=== PATIENT | female | born 1990 | race Caucasian/White ===

== ENCOUNTER 2018-06-14 11:40 | Emergency (ER) | payer SELFPAY ==
[~2018-06-14 11:40] MED LIST: ISOVUE-370 76%-LOCM 1 ML ONE
[2018-06-14 12:14] LABS: Bilirubin Negative (Negative); Blood, Urine Negative (Negative); Clarity CLEAR (Clear); Glucose, Urine (Dipstick) Negative (Negative); Leukocyte Negative (Negative); Nitrite Negative (Negative); Protein, Urine (Dipstick) Negative (Neg-Trace); Specific Gravity, Urine 1.004 (1.002-1.036); pH, Urine 6.5 (5.0-9.0)
[2018-06-14 12:24] LABS: Hemoglobin 11.9 g/dL (12.0-16.0); Mean Corpuscular Hemoglobin 27.9 pg (27.0-31.0); Mean Corpuscular Volume 87.2 fL (78.0-98.0); Mean Platelet Volume 9.1 fL (7.4-10.4); Platelet Count 185 thou/uL (130-400); RBC Distribution Width 14.9 % (11.5-14.5); Red Blood Cell (RBC) Count 4.26 mill/uL (4.20-5.40); White Blood Cell (WBC) Count 14.9 thou/uL (4.8-10.8)
[2018-06-14 12:47] LABS: ALT (SGPT) 380 U/L (8-55); AST (SGOT) 213 U/L (5-34); Albumin 4.1 g/dL (3.5-5.0); Alkaline Phosphatase 377 U/L (40-150); Bilirubin, Direct 1.4 mg/dL (0.1-0.3); Protein, Total 7.2 g/dL (6.0-8.3)
[2018-06-14 12:48] LABS: ALT (SGPT) 381 U/L (8-55); AST (SGOT) 215 U/L (5-34); Alkaline Phosphatase 369 U/L (40-150); Anion Gap 11 mmol/L (10-20); Anisocytosis SLIGHT = 6-15 cells (100X) (0-5/hpf); BUN (Urea Nitrogen) 10 mg/dL (7.0-18.7); Band 1 % (5-11); Bilirubin, Total 2.1 mg/dL (0.2-1.2); Calc. Creatinine Clearance 0 mL/min (70-130); Calcium 9.6 mg/dL (7.8-10.44); Carbon Dioxide 28 mmol/L (22-29); Chloride 104 mmol/L (98-107); Estimated GFR-MDRD 64; Globulin 3.4 g/dL (2.4-3.5); Glucose 90 mg/dL (70-105); Lymphocytes 90 % (21-51); MDiff Complete? YES; Monocytes 5 % (0-10); Neutrophil 2 % (42-75); Platelet Morphology Comment Appears Adequate; Potassium 4.3 mmol/L (3.5-5.1); Protein, Total 7.4 g/dL (6.0-8.3); Reactive Lymphocytes 2 % (0-10); Sodium 139 mmol/L (136-145)
[2018-06-14 12:48] LABS: Pregnancy Test - Urine (BHCG) Negative (Negative); Pregu Control Background? CLEAR/WHITE (CLR/WHITE); Pregu Control Bar Appear? YES (CONTROL BAR); Specific Gravity 1.004 (1.002-1.036)
--- NOTE | 2018-06-14 15:13 | ULT ---
RIGHT UPPER QUADRANT GALLBLADDER ULTRASOUND: HISTORY: Elevated liver enzymes. COMPARISON: None. FINDINGS: The visualized portions of the aorta, IVC, and pancreas are unremarkable. The liver measures 15.9 cm in length. The spleen is enlarged, measuring 14.7 cm in length. The gallbladder is normal. No pericholecystic fluid. The gallbladder wall thickness is 2 mm. The c ommon bile duct is 2 mm. The right kidney measures 11.5 x 5.2 x 4 cm, without mass, hydronephrosis, or abnormal calcifications . IMPRESSION: Marked splenomegaly. POS: [facility]
--- NOTE | 2018-06-14 16:47 | CT ---
CT ABDOMEN AND PELVIS: 06/14/2018 HISTORY: Left-sided abdominal pain/splenomegaly. FINDINGS: As noted on a recent right upper quadrant abdominal ultrasound, which did image the spleen, the splee n is enlarged and measures 14.5 cm in craniocaudal dimensions. The liver is also borderline increased in size, measuring 18 cm in craniocaudal dimension. The liver is otherwise normal in appearance. The increased length of the liver could be a normal variant for the patient. There is minimal atelectasis at the right lung base. The lung bases are otherwise clear. The pancreas, bilateral adrenal glands, right kidney, abdominal aorta, urinary bladder, uterus, and a dnexal structures demonstrate a normal CT appearance for the patient's age. A nonobstructing, approximately 2 mm calculus is present in the superior pole left kidney. The left kidney otherwise has a normal CT appearance. A small amount of free fluid is seen in the cul-de-sac, which is more than expected for physiological fluid. Low density areas are seen within each ovary, probably attributable to dominant follicles wi thin each ovary. The appendix is visualized and is normal in caliber. Loops of small bowel are normal in caliber as w ell. There is no evidence of lymphadenopathy. Bilateral pars defects are seen at L5 with mild grade 1 anterolisthesis of L5 on S1. IMPRESSION: 1. Splenomegaly. 2. The liver is enlarged in craniocaudal dimensions. This could be related to a normal variant for the patient and secondary to Mariely lobe; although, this is difficult to definitively determine. 3. Nonobstructing left renal calculus. 4. Small amount of free fluid in the pelvis. 5. Spondylolisthesis, lumbosacral junction. POS: [facility]
== END 2018-06-14 17:31 | disposition home or self-care (01) ==
LOC: ERS 11:40
DX: R16.1 Splenomegaly, not elsewhere classified (principal); R79.89 Other specified abnormal findings of blood chemistry; R10.32 Left lower quadrant pain
CPT/HCPCS: 36415; 74177; 76705; 80053; 81003; 81025; 85025; 87086; Q9966